=== PATIENT | male | born 1940 | race Caucasian/White ===

== ENCOUNTER 2016-07-08 05:48 | Inpatient (IN) | payer MEDICARE, BC ==
[2016-07-07 09:39] VITALS: BMI 32.5
[2016-07-08] VITALS (27 sets, daily range): BP systolic 101–150; BP diastolic 53–95; PULSE 52–79; RESP 18–39; Ht 190.5 cm; Wt 119.4 kg
[~2016-07-08] VITALS: Ht 190.5 cm; Wt 119.4 kg
[~2016-07-08 05:48] MED LIST: ALLO300T2 PO; AMLO5TAB4 PO; BUPIVACAINE 0.5% (SDV) 30 ML, morphine SULFATE (PF) 8 MG, EPINEPHrine 0.3 MG, KETOROLAC... IRR SCH; CEFAZOLIN 2 GM/50 ML (PMX) 50 ML IVPB ONE; DEXAMETHASONE 1 MG TAB PO ONE; GABAPENTIN 300 MG CAP PO ONE; LANS15CA5 PO; LOSA100T7 PO; MELO7.5O PO; PRAV40TA76 PO; TRANEXAMIC ACID 1,000 MG in SOD CHLORIDE 0.9% 100 ML IVPB ONE; oxyCODONE (CR) 10 MG TAB [oxyCONTIN] PO ONE; traMADol 50 MG TAB PO ONE
[2016-07-08] MEDS ORDERED: BUPIVACAINE 0.5%/EPI (SDV) 30 ML INJ ONE (06:32)
[2016-07-08] MEDS ORDERED: THROMBIN 5000 UNIT VIAL ONE (06:32)
[2016-07-08] MEDS ORDERED: CA CHLORIDE 10% 10 ML SYRINGE ONE (06:32)
[2016-07-08] MEDS ORDERED: POLYMYXIN/BACITRACIN 1L IRRIG ONE (06:32)
[2016-07-08] MEDS ORDERED: ROCURONIUM 50 MG INJ ONE (06:55)
[2016-07-08] MEDS ORDERED: PROPOFOL 100 ML ONE (06:55)
[2016-07-08] MEDS ORDERED: DEXAMETHASONE 4 MG/ML 1 ML INJ ONE (06:55)
[2016-07-08] MEDS ORDERED: ONDANSETRON 4 MG INJ ONE (06:55)
[2016-07-08] MEDS ORDERED: FENTAnyl 50 MCG/ML VIAL ONE (06:55)
[2016-07-08] MEDS ORDERED: ROPIVACAINE 0.5 % 30 ML VIAL ONE (06:55)
[2016-07-08] MEDS ORDERED: GLYCOPYRROLATE 0.4 MG INJ ONE (06:55)
[2016-07-08] MEDS ORDERED: NEOSTIGMINE 3 MG/3 ML SYRINGE ONE (06:55)
[2016-07-08] MEDS ORDERED: MIDAZOLAM 1 MG/ML 2 ML INJ ONE (06:55)
[2016-07-08] MEDS ORDERED: CEFAZOLIN 1 GM INJ ONE (07:00)
[2016-07-08] MEDS ORDERED: LABETALOL HCL 20MG INJ IV PRN (08:00)
[2016-07-08] MEDS ORDERED: hydrALAzine 20 MG INJ IV PRN (08:00)
[2016-07-08] MEDS ORDERED: MEPERIDINE 25 MG INJ IV PRN (08:00)
[2016-07-08] MEDS ORDERED: DIPHENHYDRAMINE 50 MG INJ IV PRN ×2 (08:00→09:00)
[2016-07-08] MEDS ORDERED: HYDROmorphONE (0.2 MG/ML) 10ML SYG IV PRN ×3 (08:00)
[2016-07-08] MEDS ORDERED: TRIMETHOBENZAMIDE 100 MG/ML VIAL IM PRN (08:00)
[2016-07-08] MEDS ORDERED: EPHEDrine SULFATE 50 MG/5 ML SYG IV PRN (08:00)
[2016-07-08] MEDS ORDERED: ONDANSETRON 4 MG INJ IV PRN ×2 (08:00→09:00)
[2016-07-08] MEDS ORDERED: MIDAZOLAM 1 MG/ML 2 ML INJ IV PRN (08:00)
[2016-07-08] MEDS ORDERED: FENTAnyl 50 MCG/ML VIAL IV PRN ×3 (08:00)
--- NOTE | 2016-07-08 08:54 | HPN ---
Date/Time of Note Date/Time of Note DATE: 07/08/16 TIME: 08:54 Interval H&P Admission Note Pt. seen H&P reviewed: No system changes PIERRE MOTTA MD Jul 08, 2016 08:54
--- NOTE | 2016-07-08 08:55 | PDOCDIS ---
Discharge Instructions DIAGNOSIS Discharge Diagnosis: Shoulder arthritis CONDITION Patient Condition: Good HOME CARE INSTRUCTIONS: Diet Instructions: Regular ACTIVITY: Activity Restrictions: Slowly Increase Activity Keep Limb Elevated Bathing Restrictions: Shower FOLLOW UP/APPOINTMENTS Appointments Two weeks SCHOOL/WORK RELEASE May return to School/Work with: With Restrictions School/Work Release Comment: Five pound table top usage for six weeks PIERRE MOTTA MD Jul 08, 2016 08:55
[2016-07-08] MEDS ORDERED: KETOROLAC 15 MG INJ IV PRN (09:00)
[2016-07-08] MEDS ORDERED: MAGNESIUM HYDROXIDE 30ML CUP PO PRN (09:00)
[2016-07-08] MEDS ORDERED: TRANEXAMIC ACID 1,000 MG in SOD CHLORIDE 0.9% 100 ML IV ONE (09:00)
[2016-07-08] MEDS ORDERED: ACETAMINOPHEN 500 MG TAB PO PRN (09:00)
[2016-07-08] MEDS ORDERED: LOSARTAN 50 MG TAB PO SCH ×2 (09:00→21:30)
[2016-07-08] MEDS ORDERED: OXYCODONE/ACETAMINOPHEN (5/325) TAB PO PRN ×2 (09:00)
[2016-07-08] MEDS ORDERED: ZOLPIDEM 5 MG TAB PO PRN (09:00)
[2016-07-08] MEDS ORDERED: morphine 4 MG/ML VIAL IV PRN (09:00)
[2016-07-08] MEDS ORDERED: morphine 2 MG INJ IV PRN (09:00)
--- NOTE | 2016-07-08 09:35 | OPR ---
DATE OF OPERATION: 07/08/2016 ATTENDING PHYSICIAN: Pierre Boucher MD BIOSTATISTICS TEACHER: Clint Kay PA-C PREOPERATIVE DIAGNOSIS: Right shoulder degenerative osteoarthritis, with rotator cuff tearing. POSTOPERATIVE DIAGNOSES: 1. Right shoulder degenerative osteoarthritis. 2. Right shoulder massive unrepairable rotator cuff tear. OPERATION PERFORMED: Right reverse total shoulder replacement. Experimental Psychologist surgeon, Clint Kay PA-C, was asked to be present at my request as a result of the significant surgical complexity associated with this procedure, including positioning of the extrem ity, manipulation and protection of the neurovascular structures. In my opinion, the assistance off ered by a certified surgical first assistant is insufficient and Mr. Kay should be compensated for his time. PROCEDURE IN DETAIL: Following the administration of general endotracheal anesthesia supplemented w ith a scalene block, the patient was placed in the beach chair position and the right upper extremit y was prepped and draped in the usual sterile fashion. An extended deltopectoral incision was then undertaken, exposing the conjoined tendon, retracting it medially. The subscapularis was detached. The supraspinatus and infraspinatus were torn and retracted. The biceps was released. The subscap ularis was completely released. The intraarticular portion evaluated. Severe arthritic changes wer e noted. Peripheral osteophytes were removed and a humeral head cut was then made in approximately 30 degrees of retroversion. The head was retracted. Peripheral osteophytes were removed from around the glenoid. A capsulectomy was then completed. The central canal was entered and prepared for a DePuy standard baseplate. The baseplate was impacted into position with 4 peripheral screws, with so lid fixation. A 36-mm glenosphere was then applied. The humerus was then reamed up to the 16-mm size. A 16-mm DePuy shaft was then inserted with a 9-mm liner. The joint was reduced, taken through a full range of motion, with no instability. The join t was thoroughly irrigated, closed using running sutures. Final closure with Prineo dressing. Wate rtight closure was obtained. The patient was then placed in a sling, awakened and transported to [facility] in stable condition. ESTIMATED BLOOD LOSS FOR THE PROCEDURE: 100 mL. Postoperative x-rays will be obtained in the recovery room. Dictated By: PIERRE BOGGS/LENNY Conf#: [id number] DID#: [id number]
--- NOTE | 2016-07-08 09:40 | RADRPT ---
PROCEDURE: CR right shoulder CLINICAL INDICATION: Shoulder pain TECHNIQUE: 2 views performed COMPARISON: No comparison available. FINDINGS: There is a postoperative right shoulder reverse arthroplasty. There is no dislocation. There is no l oosening of the prothesis. There is otherwise normal mineralization, architecture and alignment.No fracture or osseous lesion i s identified. The acromioclavicular joint is unremarkable. There are postoperative soft tissue fowler es. IMPRESSION: Postoperative right shoulder reverse arthroplasty. Postoperative soft tissue changes. RPTAT: [facility] .Anish Valderrama MD, MD Date Time Electronically viewed and signed by .Anish Valderrama MD, on 07/08/2016 09:40 .B/
[2016-07-08] MEDS: AMLODIPINE 5 MG TAB PO SCH (11:00)
[2016-07-08] MEDS: CEFAZOLIN 1 GM/50 ML (PMX) 50 ML IVPB SCH ×2 (13:36→21:40)
[2016-07-08] MEDS: DEXAMETHASONE 2 MG TAB PO SCH ×2 (13:36→17:54)
[2016-07-08] MEDS: SENNA/DOCUSATE NA (8.6MG/50MG) TAB PO SCH ×2 (13:43→21:00)
[2016-07-08] MEDS ORDERED: GABAPENTIN 300 MG CAP PO SCH (21:00)
[2016-07-08] MEDS ORDERED: ATORVASTATIN 10 MG TAB PO SCH (21:00)
[2016-07-09] MEDS: DEXAMETHASONE 2 MG TAB PO SCH ×2 (00:13→05:12)
[2016-07-09 00:18] VITALS: BP 150/88; PULSE 59; RESP 18
[2016-07-09] MEDS: CEFAZOLIN 1 GM/50 ML (PMX) 50 ML IVPB SCH (05:12)
[2016-07-09] MEDS ORDERED: PANTOPRAZOLE (EC) 40 MG TAB PO SCH (06:00)
--- NOTE | 2016-07-09 06:56 | DS ---
Date/Time of Note Date/Time of Note DATE: 07/09/16 TIME: 06:56 Discharge Summary Admission/Discharge Info Admit Date/Time Jul 08, 2016 at 08:57 Discharge Date/Time July 09, 2016 Final Diagnosis Right shoulder rotator cuff tear arthropathy Patient Condition: Good Procedures Right reverse total shoulder replacement Hx of Present Illness Pain and stiffness in the right shoulder for several years Hospital Course Patient was admitted and underwent a reverse total shoulder replacement. On postop day 1 he was afebrile her wound was clean and dry to be discharged following therapy. Home Meds Reported Medications Lansoprazole* (Lansoprazole*) 15 Mg Capsule.dr, 15 MG PO DAILY, CAP 01/08/16 Meloxicam* (Meloxicam*) 7.5 Mg/5 Ml Oral.susp, 15 MG PO DAILY Y for PAIN, #300 ML 01/08/16 Amlodipine Besylate* (Norvasc*) 5 Mg Tablet, 5 MG PO DAILY, TAB 01/08/16 Pravastatin Sodium* (Pravastatin Sodium*) 40 Mg Tablet, 40 MG PO HS, TAB 01/08/16 Allopurinol* (Allopurinol*) 300 Mg Tablet, 300 MG PO DAILY, TAB 01/08/16 Losartan Potassium* (Losartan Potassium*) 100 Mg Tablet, 100 MG PO DAILY, TAB 12/27/13 PIERRE MOTTA MD Jul 09, 2016 06:56
--- NOTE | 2016-07-09 06:57 | PN ---
Date/Time of Note Date/Time of Note DATE: 07/09/16 TIME: 06:57 24 hour Interval Summary Patient is awake and alert with minimal pain. Physical exam: His wound is clean and dry. He is neurologically intact. There are no signs of DVT. There is no lymphedema. Impression: Status post reverse total shoulder with good outcome thus far. Plan: Patient will have occupational therapy this morning and be discharged after that. Physical Exam Vital Signs Date Time Temp Pulse Resp B/P Pulse Ox O2 Delivery O2 Flow Rate FiO2 07/09/16 00:18 98.3 59 18 150/88 99 Nasal Cannula 3.0 Intake and Output 07/08/16 07/08/16 07/09/16 15:00 23:00 07:00 Intake Total 1750 ml 1370 ml 1250 ml Output Total 50 ml 650 ml Balance 1700 ml 1370 ml 600 ml VTE Prophylaxis VTE Prophylaxis Intervention: anti-embolic stocking Lines/Catheters IV Catheter Type: Saline Lock Wil[place]ms in Place: No Assessment/Plan Chief Complaint/Hosp Course Patient was admitted and underwent a reverse total shoulder replacement. On postop day 1 he was afebrile her wound was clean and dry to be discharged following therapy. Problems: Medications Medications Home Meds Reported Medications Lansoprazole* (Lansoprazole*) 15 Mg Capsule.dr, 15 MG PO DAILY, CAP 01/08/16 Meloxicam* (Meloxicam*) 7.5 Mg/5 Ml Oral.susp, 15 MG PO DAILY Y for PAIN, #300 ML 01/08/16 Amlodipine Besylate* (Norvasc*) 5 Mg Tablet, 5 MG PO DAILY, TAB 01/08/16 Pravastatin Sodium* (Pravastatin Sodium*) 40 Mg Tablet, 40 MG PO HS, TAB 01/08/16 Allopurinol* (Allopurinol*) 300 Mg Tablet, 300 MG PO DAILY, TAB 01/08/16 Losartan Potassium* (Losartan Potassium*) 100 Mg Tablet, 100 MG PO DAILY, TAB 12/27/13 PIERRE MOTTA MD Jul 09, 2016 06:57
[2016-07-09 08:03] VITALS: BP 129/63; RESP 18
[2016-07-09] MEDS: AMLODIPINE 5 MG TAB PO SCH (08:28)
[2016-07-09] MEDS: SENNA/DOCUSATE NA (8.6MG/50MG) TAB PO SCH (08:28)
[2016-07-09] MEDS ORDERED: ALLOPURINOL 300 MG TAB PO SCH (09:00)
[2016-07-09] MEDS ORDERED: ASPIRIN 81 MG TAB PO SCH (09:00)
== END 2016-07-09 10:40 | disposition home or self-care (01) | DRG 483 ==
LOC: SDS 05:48 → MS1 08:57 → SDS 08:57 → MS1 10:15
PROVIDERS: ADMIT Orthopaedic Surgery; ATTEND Orthopaedic Surgery
PROC: 0RRJ00Z Replacement of Right Shoulder Joint with Reverse Ball and Socket Synthetic Substitute, Open Approach (ICD-10-PCS; principal; 2016-07-08 07:00)
DX: M19.011 Primary osteoarthritis, right shoulder (principal); E11.9 Type 2 diabetes mellitus without complications; I10 Essential (primary) hypertension; M75.121 Complete rotator cuff tear or rupture of right shoulder, not specified as traumatic; E78.5 Hyperlipidemia, unspecified; N40.0 Benign prostatic hyperplasia without lower urinary tract symptoms; K21.9 Gastro-esophageal reflux disease without esophagitis; I87.8 Other specified disorders of veins; Z87.891 Personal history of nicotine dependence
CPT/HCPCS: 86999; 88304; 88311; 97166; Z7610; C1776; J0171; J0690; J0735; J1100; J1885; J2250; J2274; J2405; J2710; J2795; J3010; J3370